=== PATIENT | male | born 1985 | race Caucasian/White ===

== ENCOUNTER → 2018-01-15 | Day surgery (SDC) | payer OTHER ==
[~2018-01-15] MED LIST: FENTANYL CITRATE/PF 100MCG/2 ML INJ ONE; LIDOCAINE HCL 2% LOCAL INJ 5 ML SDV VIAL INJ ONE; MIDAZOLAM HCL 2 MG/2 ML VIAL ONE; PROPOFOL IV EMULSION 10 MG/ML 50 ML VIAL ONE
[2018-01-15 14:40] VITALS: BP 128/88
--- NOTE | 2018-01-15 15:03 | Operative Report ---
DATE OF PROCEDURE: January 15, 2018 REFERRING PHYSICIAN: Dr. Anjel Demarco. PROCEDURES PERFORMED: 1. Esophagogastroduodenoscopy with biopsies. 2. Colonoscopy with polypectomy. INDICATIONS FOR ESOPHAGOGASTRODUODENOSCOPY: Dyspepsia. INDICATIONS FOR COLONOSCOPY: Rectal bleeding. MEDICATION: Patient was done under MAC. Please see anesthesiologist's note. PROCEDURE: With the patient in the left lateral decubitus position, the flexible fiberoptic Olympus gastroscope was introduced into the esophagus under direct visualization without any difficulty. There was some patchy erythema noted in the distal esophagus. The scope was then advanced with ease into the stomach. Mucosa overlying the antrum revealed some patchy erythema and low-grade to moderate edema, and biopsies were obtained and sent to stain for H. pylori. Pylorus appeared to be of normal contour and shape, was intubated with ease, and the scope was advanced all the way to the 2nd portion of the duodenum. The scope was then withdrawn slowly. Mucosa overlying the proximal 2nd portion and the duodenal bulb appeared to be within normal limits. The scope was then withdrawn back into the stomach and retroflexed. Mucosa overlying the fundus and the cardia appeared to be within normal limits. A focal area of friability was noted in the upper body on the way out, and that was biopsied. The scope was subsequently withdrawn. Patient tolerated the procedure well. IMPRESSION: 1. Mild distal esophagitis. 2. Focal friable area upper body biopsied. 3. Gastritis biopsied. Biopsies sent to stain for H. pylori. PLAN: Follow plan follow up histology. Initiate Protonix 40 mg 1 p.o. q.a.m. a.c. Patient was then turned around and after adequate lubrication of the anal canal, a flexible fiberoptic Olympus colonoscope was inserted into the rectum with ease and advanced all the way to the cecum. Mucosa overlying the cecum appeared to be within normal limits. The ileocecal valve was intubated, and the scope was advanced into the terminal ileum. Some mild to moderate inflammatory changes were noted, and biopsies were obtained. The scope was then withdrawn back into the colon. It was then withdrawn slowly, and 2 polyps were snared from the ascending colon. The transverse and descending appeared to be within normal limits. Two polyps were hot biopsied, 1 polyp was snared from the sigmoid colon. Two polyps were hot biopsied from the rectum. The scope was then retroflexed into the distal rectum and moderate-sized internal hemorrhoids were noted, none of which was actively bleeding. The scope was then straightened out. It was subsequently withdrawn. Patient tolerated the procedure well. IMPRESSION: 1. Ascending colon polyps times 2 snared. 2. Sigmoid colon polyps times 3, 2 hot biopsied and 1 snared. 3. Rectal polyps times 2 hot biopsied. 4. Internal hemorrhoids, none actively bleeding. PLAN: Follow up histology. Initiate high-fiber low-fat diet. Initiate VSL#3 one p.o. daily. Hydrocortisone suppositories 25 mg b.i.d. times 10 days, then p.r.n. Patient might benefit from a followup colonoscopy in 3 years. Job#: [id number] EV cc:ANJEL DEMARCO MD
== END | disposition home or self-care (01) ==
LOC: OR 10:43
PROVIDERS: ATTEND Internal Medicine Gastroenterology
DX: K29.50 Unspecified chronic gastritis without bleeding (principal); D12.2 Benign neoplasm of ascending colon; K92.1 Melena; L29.0 Pruritus ani; K30 Functional dyspepsia; K20.9 Esophagitis, unspecified; K63.5 Polyp of colon; K62.1 Rectal polyp; K64.8 Other hemorrhoids
CPT/HCPCS: 43239; 45378; 45380; 45384; 45385; J2001; J2250

== ENCOUNTER 2021-03-29 22:37 | Emergency (ER) | payer OTHER ==
[~2021-03-29] VITALS: Ht 185.4 cm; Wt 108.9 kg
[2021-03-29] MEDS ORDERED: HYDROCODONE/APAP 5MG-325MG TAB PO ONE (23:00)
[2021-03-30 02:19] VITALS: BP 132/65
== END 2021-03-30 01:30 | disposition home or self-care (01) ==
LOC: ER 22:49
DX: S01.411A Laceration without foreign body of right cheek and temporomandibular area, initial encounter (principal); W21.07XA Struck by softball, initial encounter; Y93.64 Activity, baseball; Y92.328 Other athletic field as the place of occurrence of the external cause; F17.210 Nicotine dependence, cigarettes, uncomplicated
CPT/HCPCS: 99283